=== PATIENT | male | born 1980 | race Caucasian/White ===

== ENCOUNTER 2017-02-06 14:30 | Emergency (ER) | payer OTHER, MEDICAID ==
--- NOTE | 2017-02-06 14:39 | EDPHY ---
H & P HPI/ROS: CHIEF COMPLAINT: Seizure and right wrist injury HISTORY OF PRESENT ILLNESS: The patient is an epileptic 36 y/o male arriving to the ED via EMS after he had a seizure while at Urgent Care. 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 For the past 7 years he has had daily tonic clonic seizures and has post-ictal periods that can last up to 30 minutes. He was walking this afternoon and slipped on a rock, trapping his right hand in the rocks. He was seen at an urgent care for his wrist injury, but he had a seizure on the way back from his wrist x-ray. They gave him Ativan and Castalia. He recently started Cymbalta to come off of WishbergaprUnitask. Admits to eating regularly and taking Lamictal regularly. He has chronic insomnia, unchanged. Denies paresthesias, numbness, fever, shortness of breath or other pertinent symptoms. REVIEW OF SYSTEMS: A ten point review of systems was performed and is negative with the exception of the items mentioned in the HPI. Past medical history: Epilepsy 2010 PTSD Chronic back pain Chiari malformation Past surgical history: Back surgery, T7-8 Family history: Noncontributory Social history: Lives in [place] Denies Alcohol or illicit drug use General Appearance: Alert. Vital signs reviewed. Eyes: Pupils equal and round, no conjunctival injection, no discharge. Anicteric. ENT, Mouth: Mucous membranes are dry, no oropharyngeal erythema or edema. Neck: No lymphadenopathy, supple. Respiratory: Lungs are clear to auscultation; no wheezes, rales, or rhonchi. Cardiovascular: Regular rate and rhythm; no murmur, rub, or gallop. Gastrointestinal: Abdomen is soft and nontender, no masses or organomegaly, bowel sounds normal. Skin: Warm and dry, no rashes on exposed skin, normal color. Back: Nontender to palpation over the thoracolumbar spine. No CVAT. Extremities: Right wrist in splint. Abrasion on palmar aspect of right wrist. No lower extremity edema, no calf tenderness or swelling. Neurological: Alert and oriented. Moving all four extremities easily and equally. Cranial nerves II through XII are examined and are intact (visual acuity not tested). Strength is 5 over 5 bilaterally with testing of all major motor groups (right wrist and hand not tested due to recent injury). Sensation is intact to light touch over all 4 extremities. Constitutional: Initial Vital Signs Temperature (C) 36.9 C 02/06/17 14:30 Heart Rate 94 02/06/17 14:30 Respiratory Rate 16 02/06/17 14:30 Blood Pressure 106/63 02/06/17 14:30 O2 Sat (%) 93 02/06/17 14:30 O2 Delivery Mode Room Air Allergies/Adverse Reactions: adhesives Allergy (Uncoded 02/06/17 14:41) Home Medications: Medication Instructions Recorded Citalopram 02/06/17 Cyclobenzaprine 02/06/17 Cymbalta 02/06/17 Duoneb (*) 02/06/17 Lamotrigine 02/06/17 Naproxen 02/06/17 Proair Hfa 02/06/17 Tylenol 02/06/17 Medical Decision Making ED Course/Re-evaluation: The patient is an epileptic 36 y/o male arriving via EMS presenting with a right wrist injury and a seizure. He was seen at [facility] urgent care for his wrist injury, but had a seizure while coming back from x-ray. They sent him to this ED due to his seizure. No seizure activity in the emergency department. He does not seem to be postictal. CBC and chemistries reviewed. Lamictal level pending. Based upon history that he provides there is no change in his seizure frequency. He is compliant with medication. 1552: Reassessed patient and discussed laboratory results. I have referred him to a neurologist and primary care provider. Return precautions provided; patient is comfortable with this plan. Differential Diagnosis: Seizure including but not limited to electrolyte abnormality, alcohol withdrawal , medication noncompliance, head injury, and breakthrough seizure. - Data Points Laboratory Results: Laboratory Results 02/06/17 15:10 02/06/17 15:10 02/06/17 02/06/17 02/06/17 15:10 15:10 15:10 WBC 10.37 10^3/uL H 10^3/uL (3.80-9.50) RBC 4.72 10^6/uL 10^6/uL (4.40-6.38) Hgb 14.3 g/dL g/dL (13.7-17.5) Hct 41.3 % % (40.0-51.0) MCV 87.5 fL fL (81.5-99.8) MCH 30.3 pg pg (27.9-34.1) MCHC 34.6 g/dL g/dL (32.4-36.7) RDW 12.5 % % (11.5-15.2) Plt Count 332 10^3/uL 10^3/uL (150-400) MPV 9.4 fL fL (8.7-11.7) Neut % (Auto) 68.0 % % (39.3-74.2) Lymph % (Auto) 23.9 % % (15.0-45.0) [place] % (Auto) 6.1 % % (4.5-13.0) Eos % (Auto) 1.1 % % (0.6-7.6) Baso % (Auto) 0.6 % % (0.3-1.7) Nucleat RBC Rel Count 0.0 % % (0.0-0.2) Absolute Neuts (auto) 7.06 10^3/uL H 10^3/uL (1.70-6.50) Absolute Lymphs (auto) 2.48 10^3/uL 10^3/uL (1.00-3.00) Absolute Monos (auto) 0.63 10^3/uL 10^3/uL (0.30-0.80) Absolute Eos (auto) 0.11 10^3/uL 10^3/uL (0.03-0.40) Absolute Basos (auto) 0.06 10^3/uL 10^3/uL (0.02-0.10) Absolute Nucleated RBC 0.00 10^3/uL 10^3/uL (0-0.01) Immature Gran % 0.3 % % (0.0-1.1) Immature Gran # 0.03 10^3/uL 10^3/uL (0.00-0.10) Sodium 140 mEq/L mEq/L (134-144) Potassium 4.4 mEq/L mEq/L (3.5-5.2) Chloride 104 mEq/L mEq/L (97-110) Carbon Dioxide 24 mEq/l mEq/l (22-31) Anion Gap 12 mEq/L mEq/L (8-16) BUN 15 mg/dL mg/dL (7-23) Creatinine 0.9 mg/dL mg/dL (0.7-1.3) Estimated GFR > 60 Glucose 86 mg/dL mg/dL (70-100) Calcium 9.7 mg/dL mg/dL (8.5-10.4) Lamotrigine Pending Departure - Departure Disposition: Home, Routine, Self-Care Clinical Impression: Seizure disorder Condition: Good Instructions: Wrist Injury (ED), Epilepsy (ED) Additional Instructions: Schedule an appointment with neurology--call this week and let the office know that you were in the ED with a seizure. There is usually a wait before you can get an appointment, so I think you should call [facility]. Referrals: Felipe Nj DO [Doctor of Osteopathy] - As per Instructions Darnell Freeman MD [[facility] Primary Care Provider] - As per Instructions Report Scribed for: Gabriela Doe Report Scribed by: Jesika Conrad Date of Report: 02/06/17 Time of Report: 14:44 Physician Review and Approval Statement: 02/06/17 14:39 Portions of this note were transcribed by the medical anthropology director. I, Dr. Gabriela Doe, personally performed the history, physical exam, and medical decision- making; and confirmed the accuracy of the information in the transcribed note.
[2017-02-06 14:49] VITALS: RESP 16; TEMP 98.4; O2SAT 93
[2017-02-06 15:21] LABS: % IMMATURE GRANULYOCYTES 0.3 % (0.0-1.1); ABSOLUTE IMMATURE GRANULOCYTES 0.03 10^3/uL (0.00-0.10); ADD DIFF? NO; ADD MORPH? NO; ADD SCAN? NO; ATYPICAL LYMPHOCYTE FLAG 10 (0-99); FRAGMENT RBC FLAG 0 (0-99); HEMATOCRIT 41.3 % (40.0-51.0); HEMOGLOBIN 14.3 g/dL (13.7-17.5); LEFT SHIFT FLG 0 (0-99); LIPEMIA HEMOLYSIS FLAG 90 (0-99); MEAN CELL HEMOGLOBIN 30.3 pg (27.9-34.1); MEAN CELL HEMOGLOBIN CONCENTR. 34.6 g/dL (32.4-36.7); MEAN CELL VOLUME 87.5 fL (81.5-99.8); MEAN PLATELET VOLUME 9.4 fL (8.7-11.7); PLATELET CLUMPS FLAG 0 (0-99); PLATELET COUNT 332 10^3/uL (150-400); RED BLOOD CELL COUNT 4.72 10^6/uL (4.40-6.38); RED CELL DISTRIBUTION WIDTH 12.5 % (11.5-15.2)
[2017-02-06 15:38] LABS: ANION GAP 12 mEq/L (8-16); CALCIUM 9.7 mg/dL (8.5-10.4); CARBON DIOXIDE 24 mEq/l (22-31); CHLORIDE 104 mEq/L (97-110); CREATININE 0.9 mg/dL (0.7-1.3); GLOMERULAR FILTRATION RATE > 60; GLUCOSE 86 mg/dL (70-100); POTASSIUM 4.4 mEq/L (3.5-5.2); SODIUM 140 mEq/L (134-144)
--- NOTE | 2017-02-06 15:53 | ASMTCMCOM ---
CM Note CM Note Notes: Met with patient to discuss his follow up with PCP-Dr. Hauser at [facility] and patient's concerns that he may need to see an orthopedic doctor to follow up with his R wrist injury. I encouraged patient to follow up with Dr. Hauser if he has any issues scheduling an appointment with any referrals he recieves today. I have also LM with [facility] re pts. ER visit and plans to contact the office tomorrow. Patient tells me he had been living in [facility] until recently when he relocated to [place]. He has a psychiatrist in [place] that he continues to see, and has recently started his PCP with Dr. Hauser at [facility] Date Signed: 02/06/2017 03:52 PM Electronically Signed By:Cyndy Reyna RN
[2017-02-06 16:05] VITALS: BP 110/72; PULSE 81
== END 2017-02-06 16:38 | disposition home or self-care (01) ==
LOC: EDUNIT# → EDBD
DX: G40.909 Epilepsy, unspecified, not intractable, without status epilepticus (principal); W18.40XA Slipping, tripping and stumbling without falling, unspecified, initial encounter; Y93.01 Activity, walking, marching and hiking
CPT/HCPCS: 80175-90

== ENCOUNTER → 2017-02-06 | Outpatient (CLI) | payer OTHER, MEDICAID | LOC: BMCIMAGING 13:14 | PROVIDERS: ATTEND Emergency Medicine | DX: S69.91XA Unspecified injury of right wrist, hand and finger(s), initial encounter (principal) ==